=== PATIENT | female | born 1970 | race Caucasian/White ===

== ENCOUNTER 2018-06-30 19:58 | Emergency (ER) | payer OTHER ==
[~2018-06-30] VITALS: Ht 160 cm; Wt 68.0 kg
--- NOTE | 2018-06-30 22:11 | NUR ---
BIBFAMILY" MY L ELBOW HAS BEEN HURTING FOR AROUND 2 DAYS NOW" -SOB -N/V -DIZZY. PT AOX4.
[2018-06-30] MEDS ORDERED: IBUPROFEN 600 MG TABLET PO ONE ×2 (22:59→23:00)
[2018-07-01 00:39] VITALS: BP 120/81
== END 2018-07-01 00:39 | disposition home or self-care (01) ==
LOC: ER 19:58
DX: M25.522 Pain in left elbow (principal); F17.210 Nicotine dependence, cigarettes, uncomplicated; Z98.890 Other specified postprocedural states
CPT/HCPCS: 73080; 99283; 99406; A4606

== ENCOUNTER 2019-11-18 19:34 | Emergency (ER) | payer OTHER ==
[~2019-11-18] VITALS: Ht 160 cm; Wt 68.0 kg
--- NOTE | 2019-11-18 20:06 | NUR ---
BIBS FOR C/O L RIB PAIN S/P LIFTING SOMETHING HEAVY, NO SOB. PT WAS PLACED IN BED 4.. VSS. WILL CONT TO MONITOR ,
--- NOTE | 2019-11-18 20:16 | NUR ---
SARAH HENRIQUEZ PAC AT THE BED SIDE
--- NOTE | 2019-11-18 20:30 | NUR ---
X RAY AT BED SIDE
--- NOTE | 2019-11-18 21:45 | NUR ---
MEDICALLY STABLE FOR D/C.Patient discharged to home in stable condition. Rx and Written and verbal after care instructions given. Patient verbalizes understanding of instruction.
[2019-11-18 21:46] VITALS: BP 124/68
== END 2019-11-18 21:46 | disposition home or self-care (01) ==
LOC: ER 19:34
DX: S20.212A Contusion of left front wall of thorax, initial encounter (principal); L30.9 Dermatitis, unspecified; F17.210 Nicotine dependence, cigarettes, uncomplicated; Z98.890 Other specified postprocedural states; X50.0XXA Overexertion from strenuous movement or load, initial encounter; Y93.89 Activity, other specified; Y92.89 Other specified places as the place of occurrence of the external cause; Y99.8 Other external cause status
CPT/HCPCS: 71100-TC

== ENCOUNTER 2020-02-22 16:45 | Emergency (ER) | payer OTHER ==
[~2020-02-22] VITALS: Ht 160 cm; Wt 68.0 kg
[2020-02-22 17:05] VITALS: BP 135/81
--- NOTE | 2020-02-22 17:16 | NUR ---
Patient discharged to home in stable condition. Written and verbal after care instructions given. Patient verbalizes understanding of instruction.
== END 2020-02-22 17:16 | disposition home or self-care (01) ==
LOC: ER 16:51
DX: N63.0 Unspecified lump in unspecified breast (principal); F17.210 Nicotine dependence, cigarettes, uncomplicated; Z98.890 Other specified postprocedural states; Z90.89 Acquired absence of other organs

== ENCOUNTER 2023-07-12 21:16 | Emergency (ER) | payer OTHER ==
[~2023-07-12] VITALS: Ht 160 cm; Wt 68.5 kg
[2023-07-12] MEDS: IBUPROFEN 600 MG TABLET PO ONE (21:47)
[2023-07-12] MEDS ORDERED: IBUPROFEN 600 MG TABLET ONE (21:47)
[2023-07-12] MEDS ORDERED: ACET-2605 PO (22:46)
[2023-07-12] MEDS ORDERED: NAPR-1192 PO (22:46)
[2023-07-12 22:57] VITALS: BP 116/86; TEMP 98; O2SAT 99
== END 2023-07-12 22:58 | disposition home or self-care (01) ==
LOC: ER 21:18
DX: M79.672 Pain in left foot (principal); F17.200 Nicotine dependence, unspecified, uncomplicated; Z98.890 Other specified postprocedural states
CPT/HCPCS: 73630-TC

== ENCOUNTER 2024-12-23 17:17 | Emergency (ER) | payer BC, OTHER ==
[~2024-12-23] VITALS: Ht 157.5 cm; Wt 68.0 kg
[~2024-12-23 17:17] MED LIST: ACET-2605 PO; NAPR-1192 PO
[2024-12-23 17:47] VITALS: TEMP 98.6
[2024-12-23] MEDS ORDERED: IBUPROFEN 400 MG TABLET ONE (18:35)
[2024-12-23] MEDS: IBUPROFEN 400 MG TABLET PO ONE (18:38)
[2024-12-23] MEDS ORDERED: IBUP-1490 PO (18:50)
[2024-12-23 19:13] VITALS: BP 192/80; O2SAT 98
== END 2024-12-23 19:13 | disposition home or self-care (01) ==
LOC: ER 17:21
DX: S20.212A Contusion of left front wall of thorax, initial encounter (principal); F17.200 Nicotine dependence, unspecified, uncomplicated; Z96.611 Presence of right artificial shoulder joint; Z87.39 Personal history of other diseases of the musculoskeletal system and connective tissue; W01.0XXA Fall on same level from slipping, tripping and stumbling without subsequent striking against object, initial encounter; Y93.89 Activity, other specified; Y92.89 Other specified places as the place of occurrence of the external cause; Y99.8 Other external cause status
CPT/HCPCS: 71100-TC

== ENCOUNTER 2025-01-18 13:03 | Emergency (ER) | payer BC ==
[~2025-01-18] VITALS: Ht 160 cm; Wt 65.8 kg
[~2025-01-18 13:03] MED LIST changes: +IBUP-1490 PO
[2025-01-18] MEDS ORDERED: KETOROLAC TROMETHAMINE 15 MG/ML VIAL ONE (13:29)
[2025-01-18] MEDS ORDERED: NAPR-1164 PO (13:32)
[2025-01-18] MEDS: KETOROLAC TROMETHAMINE 15 MG/ML VIAL IM ONE (13:33)
[2025-01-18 14:53] VITALS: BP 123/81; TEMP 97.8; O2SAT 97
== END 2025-01-18 14:54 | disposition home or self-care (01) ==
LOC: ER 13:03
DX: M25.511 Pain in right shoulder (principal); F17.200 Nicotine dependence, unspecified, uncomplicated; Z96.619 Presence of unspecified artificial shoulder joint
CPT/HCPCS: 99283; 96372; 73030; J1885